=== PATIENT | female | born 1965 | race Two or more races ===

== ENCOUNTER 2016-04-05 11:52 | Emergency (ER) | payer BC ==
[~2016-04-05] VITALS: Wt 65.0 kg
[~2016-04-05 11:52] MED LIST: IBUP-1542 PO
[2016-04-05] MEDS ORDERED: ACETAMINOPHEN 325 MG TAB PO ONE (12:30)
--- NOTE | 2016-04-05 14:33 | RADRPT ---
PROCEDURE: CT Brain without contrast. CLINICAL INDICATION: Headache. TECHNIQUE: A CT of the brain without contrast was performed utilizing axial sections from the skul l base through the vertex. The patient was scanned without intravenous contrast enhancement. Sagitta l and coronal reformatted images were obtained using the data from the axial images. Total exam DLP is 720.23 mGy-cm. CTDIvol is 44.90 mGy. One or more of the following dose reduction techniques we re used: Automated exposure control, adjustment of the mA and/or kV according to patient size, use o f iterative reconstruction technique. COMPARISON: None available FINDINGS: There is normal aly-white matter differentiation. The ventricles and cisterns are normal. There is no intracranial hemorrhage or space-occupying lesion. There is no skull fracture or lytic lesion. IMPRESSION: 1. Normal noncontrast CT scan of the brain. RPTAT: QQ .Shane Marmolejo MD, MD Date Time Electronically viewed and signed by .Shane Marmolejo MD, on 04/05/2016 14:33 .R/
--- NOTE | 2016-04-05 14:44 | RADRPT ---
PROCEDURE: CT cervical spine without contrast CLINICAL INDICATION: Neck pain, trauma TECHNIQUE: CT scan of the cervical spine was performed on a multidetector CT scanner.. No IV cont rast was administered. Coronal and sagittal reformatted images were obtained from the axial source images. Images were reviewed on a high-resolution PACS workstation. CTDI = 44.90 mGy DLP: 72 0.23 mGy-cm One or more of the following dose reduction techniques were used: Automated exposure control Adjustment of the mA and / or kV according to patient size Use of iterative reconstruction technique. COMPARISON: None. FINDINGS: There is no CT evidence of acute fracture or subluxation. There is straightening of the usual cervical lordosis. Vertebral body heights are preserved. There is moderate degenerative disk disease with uncovertebral hypertrophy at C5-C6 with mild degene rative disk disease at C4-C5 and C6-C7. There is mild right greater than left facet arthrosis at C3- C4. There is mild to moderate bilateral foraminal stenosis at C5-C6 and mild bilateral foraminal pawel nosis at C6-C7. The prevertebral soft tissues are normal. The lung apices are clear. The paraspinal soft tissues are grossly unremarkable. IMPRESSION: 1. No CT evidence of acute fracture or subluxation of the cervical spine. 2. Straightening of the usual cervical lordosis. 3. Moderate degenerative disk disease and uncovertebral hypertrophy at C5-C6 contributing to mild t o moderate bilateral foraminal stenosis at this level. RPTAT: UU .Srikanth العراقي MD, Date Time Electronically viewed and signed by .Srikanth العراقي MD, on 04/05/2016 14:43 .K/
[2016-04-05] MEDS ORDERED: CYCL-319 PO (14:57)
[2016-04-05] MEDS ORDERED: IBUP-1542 PO (14:57)
[2016-04-05] MEDS ORDERED: TRAM50TA2 PO (14:58)
--- NOTE | 2016-04-05 15:02 | ERD ---
ER Documentation Chief Complaint Date/Time DATE: 04/05/16 TIME: 15:00 Chief Complaint RIGHT SIDE HEADACHE SINCE 3 WKS. NO TRAUMA . NO NEURO DEFICIT HPI This 50-year-old female complains of 3 week history of pain on the right side of her neck and occipital area of her head. She denies any trauma or inciting events. She denies any fevers, chest pain, shortness breath, weakness, bowel or bladder incontinence. ROS All systems reviewed and are negative except as per history of present illness. Medications Home Meds Active Scripts Tramadol HCl (Tramadol HCl) 50 Mg Tablet, 50 MG PO Q4 Y for PAIN, #20 TAB Prov:MISTY PEREYRA MD 04/05/16 Cyclobenzaprine Hcl* (Cyclobenzaprine Hcl*) 10 Mg Tablet, 10 MG PO TID, #20 TAB Prov:MISTY PEREYRA MD 04/05/16 Ibuprofen* (Motrin*) 600 Mg Tab, 600 MG PO Q6, #20 TAB Prov:MISTY PEREYRA MD 04/05/16 Ibuprofen* (Motrin*) 600 Mg Tab, 600 MG PO Q6H Y for PAIN AND OR ELEVATED TEMP, #30 TAB Prov:LAURA JIMENEZ NP 08/02/15 Reported Medications [none] Unknown Strength No Conflict Check 08/02/15 Allergies Allergies: Coded Allergies: No Known Allergy (Verified , 08/02/15) PMhx/Soc Medical and Surgical Hx: pt denies Medical Hx History of Surgery: Yes (appy [id number]) Anesthesia Reaction: No Hx Neurological Disorder: No Hx Respiratory Disorders: No Hx Cardiac Disorders: No Hx Psychiatric Problems: No Hx Miscellaneous Medical Probl: No Hx Alcohol Use: No Hx Substance Use: No Hx Tobacco Use: No Smoking Status: Never smoker Physical Exam Vitals Vital Signs Date Time Temp Pulse Resp B/P Pulse Ox O2 Delivery O2 Flow Rate FiO2 04/05/16 11:59 98.7 76 21 133/63 98 Physical Exam Const: [] Alert, [id number]. Head: Atraumatic Eyes: Normal Conjunctiva. Eyes PERRLA and extraocular movements intact. ENT: Normal External Ears, Nose and Mouth. Neck: Full range of motion..~ No meningismus. Some tenderness in the right C2-C3 paraspinous area of the cervical spine. There is no appreciable midline tenderness or deformities. Resp: Clear to auscultation bilaterally Cardio: Regular rate and rhythm, no murmurs Abd: Soft, non tender, non distended. Normal bowel sounds Skin: No petechiae or rashes Back: No midline or flank tenderness Ext: No cyanosis, or edema Neur: Awake and alert. Cranial nerves II through XII grossly intact. Normal gait. No appreciable focal neurologic deficits per Psych: Normal Mood and Affect Results 24 hrs Current Medications Medications (Trade) Dose Ordered Sig/Kaylin Route PRN Reason Start Time Stop Time Status Last Admin Dose Admin Acetaminophen (Tylenol Tab) 650 mg ONCE ONCE PO 04/05/16 12:30 04/05/16 12:31 DC 04/05/16 12:33 Procedures/MDM Given patient concerning uncertain cause of headache a CT brain and cervical spine was performed which showed no intracranial abnormalities or fractures. There is some degenerative changes of C5-C6 of the cervical spine. Patient was given Tylenol 650 mg by mouth. Patient presents with neck pain rating to the exhibit consistent with cervical radicular pain or neck spasm likely due to arthritis or disc disease. She will treated with tramadol, Flexeril and ibuprofen and instructions to follow-up with primary doctor. Is no evidence of neurologic deficit, bacterial infection, additional emergent causes of neck pain or headache currently. The patient was stable with no new complaints during the ER course. Clinically, there is no current evidence to suggest meningitis, sepsis, acute abdomen, pneumonia, acute coronary syndrome, pulmonary embolism, or any other emergent condition appearing to require further evaluation or hospitalization. The patient should certainly return for any new or worsening symptoms per the aftercare instructions. They should otherwise follow-up with her primary care doctor for reevaluation this week. Departure Diagnosis: Primary Impression: Neck pain Additional Impression: Headache Headache type: unspecified Headache chronicity pattern: unspecified pattern Intractability: not intractable Qualified Code: R51 - Nonintractable headache, unspecified chronicity pattern, unspecified headache type Condition: Stable Patient Instructions: Headache, Unspecified, Neck Pain, No Trauma Additional Instructions: CT NORMAL. SOLO ARTRITIS. Cheque otro vez con posey doctor primario en el proximo quinn or regresa para mas o nueva simptomas. MISTY PEREYRA MD Apr 05, 2016 15:01
[2016-04-05 15:05] VITALS: BP 124/78; PULSE 77; RESP 18; TEMP 98.1
== END 2016-04-05 15:05 | disposition home or self-care (01) ==
LOC: FTE 11:52
DX: M54.2 Cervicalgia (principal); R51 Headache
CPT/HCPCS: 70450; 72125

== ENCOUNTER 2018-09-15 14:33 | Emergency (ER) | payer BC, OTHER ==
[~2018-09-15] VITALS: Ht 154.9 cm; Wt 75.1 kg
[~2018-09-15 14:33] MED LIST changes: +CYCL10TA7 PO; +TRAM50TA2 PO
[2018-09-15 14:37] VITALS: Ht 154.9 cm; Wt 75.1 kg
[2018-09-15] MEDS ORDERED: KETOROLAC 30 MG INJ IM STA (16:12)
[2018-09-15] MEDS ORDERED: DEXAMETHASONE 10 MG/ML 1 ML INJ IM ONE (16:30)
[2018-09-15] MEDS ORDERED: NAPR-985 PO (16:42)
[2018-09-15] MEDS ORDERED: CYCL10TA7 PO (16:42)
[2018-09-15 17:46] VITALS: BP 145/74; PULSE 77; RESP 18
--- NOTE | 2018-09-16 01:22 | ERD ---
ER Documentation Chief Complaint Chief Complaint lower back pain x1wk, radiating down legs HPI 52-year-old female presents to the emergency department complaining of left low back pain with radiation down her left leg for the past 1 week. She took Tylenol at home without significant relief. Current pain is rated 9/10 in severity and constant and worse with walking. She denies any dysuria, fevers, chills, abdominal pain, loss of bowel or bladder function, or other symptoms at this time. ROS All systems reviewed and are negative except as per history of present illness. Medications Home Meds Active Scripts Cyclobenzaprine Hcl* (Cyclobenzaprine Hcl*) 10 Mg Tablet, 10 MG PO TID, #15 TAB Prov:LELA CORTEZ PA-C 09/15/18 Naproxen* (Naprosyn*) 500 Mg Tablet, 500 MG PO BID PRN for PAIN AND/OR INFLAMMATION, #30 TAB Prov:LELA CORTEZ PA-C 09/15/18 Tramadol HCl (Tramadol HCl) 50 Mg Tablet, 50 MG PO Q4 PRN for PAIN, #20 TAB Prov:MISTY PEREYRA MD 04/05/16 Cyclobenzaprine Hcl* (Cyclobenzaprine Hcl*) 10 Mg Tablet, 10 MG PO TID, #20 TAB Prov:MISTY PEREYRA MD 04/05/16 Ibuprofen* (Motrin*) 600 Mg Tab, 600 MG PO Q6, #20 TAB Prov:MISTY PEREYRA MD 04/05/16 Ibuprofen* (Motrin*) 600 Mg Tab, 600 MG PO Q6H PRN for PAIN AND OR ELEVATED TEMP, #30 TAB Prov:LAURA JIMENEZ NP 08/02/15 Reported Medications [none] Unknown Strength No Conflict Check 08/02/15 Allergies Allergies: Coded Allergies: No Known Allergy (Verified , 09/15/18) PMhx/Soc History of Surgery: No Anesthesia Reaction: No Hx Neurological Disorder: No Hx Respiratory Disorders: No Hx Cardiac Disorders: No Hx Psychiatric Problems: No Hx Miscellaneous Medical Probl: Yes (HIGH CHOLESTEROL) Hx Alcohol Use: No Hx Substance Use: No Hx Tobacco Use: No Smoking Status: Never smoker FmHx Family History: No diabetes Physical Exam Vitals Vital Signs Date Temp Pulse Resp B/P (MAP) Pulse Ox O2 O2 Flow FiO2 Time Delivery Rate 09/15/18 98.0 77 18 145/74 98 17:46 (97) 09/15/18 97.6 101 18 155/74 98 14:37 (101) Physical Exam Const: No acute distress Head: Atraumatic Eyes: Normal Conjunctiva ENT: Normal External Ears, Nose and Mouth. Neck: Full range of motion. No meningismus. Resp: Clear to auscultation bilaterally Cardio: Regular rate and rhythm, no murmurs Abd: Soft, non tender, non distended. Normal bowel sounds Skin: No petechiae or rashes Back: No midline or flank tenderness. Tenderness palpation of the paraspinal muscles of the lumbar spine. Positive straight leg raise on the left. Ext: No cyanosis, or edema Neur: Awake and alert Psych: Normal Mood and Affect Results 24 hrs Current Medications Medications Dose Sig/Kaylin Start Time Status Last (Trade) Ordered Route PRN Stop Time Admin Dose Reason Admin Ketorolac 30 mg ONCE STAT 09/15/18 DC 09/15/18 Tromethamine IM 16:12 09/15/18 16:23 (Toradol) 16:14 10 mg ONCE ONCE 09/15/18 DC 09/15/18 Dexamethasone IM 16:30 09/15/18 16:23 (Decadron) 16:31 Procedures/MDM 52-year-old female presents with signs and symptoms most consistent with left- sided low back pain with sciatica. Patient was administered Toradol and Decadron in the department with significant improvement of her symptoms. She was ambulating in the department without assistance or difficulty prior to discharge. Patient's musculoskeletal symptoms have stabilized while they have been evaluated in the department and are appropriate for outpatient work up. No evidence of cauda equina, cord compression, infiltrative, or infectious etiology. No evidence of life-threatening pathology at time of discharge. Pt/family in agreement with discharge plan/diagnosis. Pt/family advised to return immediately with any new or worsening symptoms. Follow-up with primary care physician within the next 1-2 days. Patient's blood pressure was elevated (>120/80) but appears stable without evidence of hypertension emergency or urgency. The patient is to follow-up and pursue outpatient monitoring and therapy with their primary care physician within 1 week and return immediately if they have any new, worsening, or concerning symptoms. Disclaimer: Inadvertent spelling and grammatical errors are likely due to EHR/dictation software use and do not reflect on the overall quality of patient care. Also, please note that the electronic time recorded on this note does not necessarily reflect the actual time of the patient encounter. Departure Diagnosis: Primary Impression: Low back pain with sciatica Condition: Fair Patient Instructions: Back Pain W/ Sciatica [facility] Usted se oviedo hecho un examen mdico de control que le indica que no est en kristal condicin que requiera tratamiento urgente en el Departamento de Emergencia. Un estudio ms profundo y el tratamiento de posey condicin pueden esperar sin ningn riesgo hasta que usted sea atendida/o en el consultorio de posey mdico o kristal clnica. Es responsabilidad suya arreglar kristal tom para el seguimiento del greg. MANEJO DE CONDICIONES NO URGENTES EN EL FUTURO 1) Si usted tiene un mdico de atencin primaria: Usted debera llamar a posey mdico de atencin primaria antes de venir al departamento de emergencia. Despus de las horas de consultorio, posey doctor o posey asociado/a est disponible por telfono. El mdico o enfermero de edson en el servicio telefnico puede asesorarle por patt medio para atender el problema, o greg contrario se puede programar kristal tom. 2) Si usted no tiene un mdico de atencin primaria: Llame al mdico o clnica de referencia que aparece abajo muriel las horas de consultorio para hacer kristal tom para que le vean. CLINICAS: [facility] [phone] [facility] [phone] [facility] [phone] [facility] [phone] [facility]. [facility] [phone] [facility] [phone] [address] Additional Instructions: Llame al doctor MAANA y mirela kristal TOM PARA DENTRO DE 1-2 CARBALLO.Dgale a la secretaria que nosotros le instruimos hacer esta tom.Avise o llame si posey condicin se empeora antes de la tom. Regresa aqui si peor o no mejor. LELA CORTEZ PA-C Sep 16, 2018 01:22
== END 2018-09-15 17:40 | disposition home or self-care (01) ==
LOC: FTE 14:33
DX: M54.42 Lumbago with sciatica, left side (principal)
CPT/HCPCS: 96372; J1100; J1885; Z7502